=== PATIENT | male | born 1965 | race Caucasian/White ===

== ENCOUNTER 2016-11-12 05:35 | Day surgery (SDC) | payer OTHER ==
[~2016-11-12] VITALS: Ht 188 cm; Wt 111.3 kg
[2016-11-12] MEDS: Lactated Ringer's 1,000 ML IV SCH ×2 (05:14→06:00)
[~2016-11-12 05:35] MED LIST: ACET-171 PO; CETI-343 PO; FLUT16SP NASAL; IBUP-1827 PO; LISI40TA PO
[2016-11-12] MEDS ORDERED: fentaNYL-PF 50 mCg/mL 2 mL Inj ONE (05:36)
[2016-11-12] MEDS ORDERED: Ondansetron 2 mg/mL 2 mL Inj ONE (05:36)
[2016-11-12] MEDS ORDERED: Propofol 10,000 mCg/mL 20 mL Inj ONE (05:36)
[2016-11-12] MEDS ORDERED: INFLIXIMAB IV ONE (05:36)
[2016-11-12 06:00] VITALS: BP 134/92; PULSE 66; RESP 16; O2SAT 99
[2016-11-12] MEDS ORDERED: Lactated Ringer's 1,000 ML IV SCH ×2 (06:00→07:46)
[2016-11-12] MEDS ORDERED: CeFAZolin Inj 2 GM in IV Premix 1 EACH IV SCH (06:00)
--- NOTE | 2016-11-12 07:01 | PCM.HPANE ---
Patient Data Surgeon Admitting Provider: Attending Provider:Brice Issa DO Primary Care Physician:Other,Physician Other Provider:Alla Roman Anesthesia Reason for Visit Left Foot Mass Ht/WT & BMI Height (Feet): 6 Height (Inches): 2.00 Weight (Kilograms): 111.3 Body Mass Index 31.00 Allergies Coded Allergies: No Known Allergies (Unverified , 11/08/16) Past Anesthesia History Anesthesia History: Denies:: Abnormal Airway, Anesthesia Reactions, Difficult Intubation, Fam Anesthesia Reaction, Fam Malignant Hypertherm, Malignant Hyperthermia Diabetes History Hx Diabetes?: No MRSA MRSA: No Medications Home Meds Incl Beta Foreign: No Reported Medications Acetaminophen 500 Mg [id number] Mg PO Q6H PRN For Fever 11/08/16 Ibuprofen 600 Mg [id number] Mg PO QID PRN For Pain Ref 0 11/08/16 Lisinopril 40 Mg [id number] Mg PO DAILY #90 11/08/16 Fluticasone Propionate (Fluticasone Propionate Nasal)16 Gm [place].susp1 [place] NASAL BID #16 11/08/16 Cetirizine HCl (24Hour Allergy)10 Mg [id number] Mg PO DAILY #90 11/08/16 History History of ENT Problems?: Yes HEENT History: Positive for:: Sinus Problem (ALLERGIC RHINITIS) Denies:: Cataracts Glaucoma Hearing Problem Denture Type: None Teeth Condition: Within Normal Limits Hx of Heart Problems?: Yes Cardiovascular History: Positive for:: Hypertension Hx of Respiratory Problem?: No Respiratory History: Denies:: Asthma COPD Chest Surgery Cough Dyspnea Emphysema Hemoptysis Oxygen Administration Pneumonia Pulmonary Embolism Tuberculosis Use of C-PAP Machine Use of Inhalers / NEBS Hx Neurologic Problems?: No Hx of GI Problems?: No Hx of Problems?: No Genitourinary History: Denies:: HX of Hemodialysis Kidney Stones Urinary Tract Infection HX of Peritoneal Dialysis: No Hx Musculoskeletal Problems?: No Hx of Psycho/Social Problems?: No Hx Surgeries?: Yes (L THUMB LIGAMENT REATTACHMENT 2003, RAMAN HERNIAS, LYMPHOMA BACK SURGERY) Other History: Denies:: Cancer Endocrine Disease Hospitalization Thyroid Disease History Blood Transfusions: Positive for:: Accept Blood Products? Denies:: Blood Transfusions Hx Diabetes: No Approx How Many Cigarettes/day: 13 PACK YEAR HX Stop/Bang S-Snoring: Do You Snore Loudly: No T-Tired: feel tired, fatigued: No P-Blood Pressure: treated: Yes B- Body Mass Index > 35 kg/m2: No A- Age over 50: No N- Neck Large Circumference: Yes Risk Assessment Category Category 1A: Patient has history of documented sleep apnea, and HAS NOT received any narcotic, sedative or anesthesia administration during this stay. Category 1B: Patient has history of documented sleep apnea, and HAS received any narcotic , sedative or anesthesia administration during this stay Category 2: Patient has SUSPECTED Obstructive Sleep Apnea, and HAS received any narcotic , sedative or anesthesia administration during this stay. Category 3: Patient has SUSPECTED Obstructive Sleep Apnea and HAS NOT received narcotic, sedative or anesthesia administration during this stay. Category 4: Outpatient in Procedural Areas with known sleep apnea or who screen positive for High Risk via the STOP/BANG questionnaire. Exam Exam Vital Signs Vital Signs Date Time Temp Pulse Resp B/P Pulse Ox O2 Delivery O2 Flow Rate FiO2 11/12/16 06:00 36.2 66 16 134/92 99 Room Air General Appearance: Alert, Oriented X3, Cooperative, No Acute Distress HEENT/AIRWAY: MP 2, Neck Movement (from), Mouth Opening (wnl) Lungs: Clear to Auscultation Heart: Exam Unremarkable Meds/Labs/Diagnostics Admission Meds Current Medications Lactated Ringer's (Lr) 1,000 ml @ 120 mls/hr Q8H20M IV Last administered on t 05:14; Start 11/12/16 at 05:00; Stop 11/12/16 at 13:19 Plan Impression Patient chart reviewed, patient interviewed and anesthestic plan with risks, benefits, and alternatives discussed, and informed consent obtained. ASA Physical Status: ASA1 Normal Healthy Anesthetic Plan: MAC Bene/Risks/Altern/Consents: Yes HP Complete Prior to Induction: Yes James Dinh MD Nov 12, 2016 07:01
[2016-11-12] MEDS ORDERED: Lactated Ringer's 500 ML IV PRN (07:46)
[2016-11-12] MEDS ORDERED: Bupivacaine-MPF 0.5% W/EPI 30 mL Inj INFILTRATE ONE (07:47)
[2016-11-12] MEDS ORDERED: Phenylephrine 10,000 mCg/mL Inj IVPUSH PRN (07:50)
[2016-11-12] MEDS ORDERED: HYDROmorphone 1 mg/mL Inj IVPUSH PRN (07:50)
[2016-11-12] MEDS ORDERED: EPHEDrine Sulfate 50 mg/mL Inj IVPUSH PRN (07:50)
[2016-11-12] MEDS ORDERED: Ondansetron 2 mg/mL 2 mL Inj IVPUSH PRN (07:50)
[2016-11-12] MEDS ORDERED: hydrALAZINE 20 mg/mL Inj IVPUSH PRN (07:50)
[2016-11-12] MEDS ORDERED: fentaNYL-PF 50 mCg/mL 2 mL Inj IVPUSH PRN (07:50)
[2016-11-12] MEDS ORDERED: Dexamethasone 4 mg/mL Inj IVPUSH PRN (07:50)
[2016-11-12] MEDS ORDERED: Atropine 0.4 mg/mL Inj IVPUSH PRN (07:50)
[2016-11-12] MEDS ORDERED: Labetalol 5 mg/mL 4 mL Inj IV PRN (07:50)
[2016-11-12 08:05] VITALS: BP 115/80; PULSE 59; RESP 16; O2SAT 100
--- NOTE | 2016-11-12 08:06 | PCM.ANEP1 ---
Post Anesthesia PACU Phase 1 Assessment Vital Signs Vital Signs Date Time Temp Pulse Resp B/P Pulse Ox O2 Delivery O2 Flow Rate FiO2 11/12/16 06:00 36.2 66 16 134/92 99 Room Air Anesthetic Administered: MAC Level of Alertness: Awake, talking TREJO's with Equal Strength: Yes Pain: No Nausea or Vomiting: No CV Function & Hydration Stable: No Airway Device: Lungs: Normal Air Movement PACU Phase 2 Assessment Complications: No Follow up Care: No Patient Instructions Provided: N/A James Dinh MD Nov 12, 2016 08:06
[2016-11-12 08:18] VITALS: BP 123/82; PULSE 61; RESP 18; O2SAT 99
[2016-11-12] MEDS ORDERED: HYDROcodone-APAP 5-325 mg Tablet PO PRN (08:20)
--- NOTE | 2016-11-12 08:53 | OP ---
[address] [address] OPERATIVE REPORT PATIENT: KARL JON : 1965 MR#: [id number] ADMIT: 11/12/2016 JOB ID: [id number] DATE OF SURGERY: 11/12/2016 SURGEON: Brice Issa DO PREOPERATIVE DIAGNOSIS(ES): Left medial foot mass. POSTOPERATIVE DIAGNOSIS(ES): Left medial foot mass. PROCEDURE: Left foot mass resection. ANESTHESIA: IV sedation with local. INDICATIONS: The patient is a 51-year-old male with painful and bothersome left medial foot mass which gets larger and smaller at times, and he wishes to have this removed. We discussed treatment options for this and I offered him surgical resection and he wished to proceed. We discussed the risks, benefits, and possible complications of surgery. All questions were answered. He wished to proceed. PROCEDURE IN DETAIL: The patient was brought to the operating room. He was given a preoperative antibiotic and sedation. I then did an ankle block with a mixture of Marcaine and lidocaine as well as a field block. An incision was made centered over the medial foot mass which was centered over the head of the navicular. Dissection was carefully carried through subcutaneous tissue and the mass was then encountered. It was about a 4 mm to 5 mm mass, and I resected it in its entirety and cauterized the stump base of the mass. I irrigated the area and then closed the wound with interrupted nylon suture. Some additional local was added as an adjunct local anesthetic. Sterile dressings were applied. Patient tolerated the procedure well. The specimen was sent to pathology. POSTOPERATIVE PROTOCOL: Have the patient ice and elevate and remain nonweightbearing until his wound is completely healed. Follow up in the clinic in 2 weeks or sooner if needed.
--- NOTE | 2016-11-13 13:41 | PATH ---
SURGICAL PATHOLOGY Attending Physician:Brice Issa DO CASE STATUS: Signed Out PATIENT NAME: KARL JON PID: [id number] : 1965 DATE COLLECTED:11/12/2016 22:07 SPECIMEN: Mass, NOS CLINICAL HISTORY: LEFT FOOT MASS 1). 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 ICD10 D18.01 GROSS DESCRIPTION: The specimen is received in one formalin filled container labeled with the patient's name, sublabeled "left foot mass" and consists of a 0.5 x 0.4 x 0.3 CM light saucedo portion of tissue. The specimen is inked blue. The specimen is bisected and totally submitted in one cassette. 11/12/2016 [facility] MICRO DESCRIPTION: See diagnosis. ICD-9 CODES: CPT CODES: 1: 98900 Electronically Signed Out Maximino Hunt MD [facility] Pathology [facility] [address], [place] [address] Technical component performed at [facility], [facility] [address], [place], [address]
== END 2016-11-12 23:59 | disposition home or self-care (01) ==
LOC: SAS 05:35
PROVIDERS: ATTEND Orthopaedic Surgery
DX: D18.01 Hemangioma of skin and subcutaneous tissue (principal); R22.42 Localized swelling, mass and lump, left lower limb; I10 Essential (primary) hypertension; J30.9 Allergic rhinitis, unspecified; Z87.891 Personal history of nicotine dependence
CPT/HCPCS: 28041; J0690; J7120